=== PATIENT | female | born 1985 | race African-American/Black ===

== ENCOUNTER 2022-11-18 16:11 | Emergency (ER) | payer OTHER ==
[2022-11-18 16:17] VITALS: BP 108/71; PULSE 64; RESP 20; TEMP 98; BMI 25.4
== END 2022-11-18 17:08 | disposition home or self-care (01) ==
LOC: JERFT 16:11
DX: S61.257A Open bite of left little finger without damage to nail, initial encounter (principal); W50.3XXA Accidental bite by another person, initial encounter
CPT/HCPCS: 99283-25